=== PATIENT | male | born 1970 | race Caucasian/White ===

== ENCOUNTER 2023-03-29 20:45 | Outpatient (CLI) | payer BC, SELFPAY | END 2023-03-29 20:46 | disposition home or self-care (01) | LOC: AMB 03-30 10:02 | PROVIDERS: PCP Family Medicine; Visit Provider Emergency Medicine Emergency Medical Services | DX: R55 Syncope and collapse (principal) | CPT/HCPCS: A0425; A0427 ==

== ENCOUNTER 2023-03-29 21:06 | Emergency (ER) | payer BC, SELFPAY ==
[2023-03-29] VITALS (8 sets, daily range): BP systolic 90–118; BP diastolic 58–79; PULSE 73–91; RESP 18; TEMP 36.8; O2SAT 96–99; BMI 22.8
--- NOTE | 2023-03-29 21:41 | ED_ITS ---
HPI - Syncope General Time Seen by Provider: 21:41 <Svetlana Osborne MD - Last Filed: 03/30/23 09:14> Date Seen: 03/29/23 <Svetlana Osborne MD - Last Filed: 03/30/23 09:14> Chief Complaint: Syncope/Fainted <Svetlana Osborne MD - Last Filed: 03/30/23 09:14> Stated Complaint: fainted <Svetlana Osborne MD - Last Filed: 03/30/23 09:14> Time Seen by Provider: 03/29/23 21:41 <Svetlana Osborne MD - Last Filed: 03/30/23 09:14> Source: patient, family, EMS and RN notes reviewed <Svetlana Osborne MD - Last Filed: 03/30/23 09:14> Mode of arrival: EMS <Svetlana Osborne MD - Last Filed: 03/30/23 09:14> Limitations: no limitations <Svetlana Osborne MD - Last Filed: 03/30/23 09:14> History of Present Illness HPI narrative: Patient is a 52yo male brought in by EMS from home after syncopal event. Patient has Waldenstrom macroglobulinemia, started treatment with chemotherapy bendamustine this week, received this Monday and Monday. Completed his Neulasta self injector tonight. He started to nausea and faint after the injection completed. He went to go back upstairs and fainted. His was there and found him on the floor looking pale but breathing, he was wedged in between the wall and dresser. He likely hit the back of his head, has some mild neck discomfort but he wouldn't call it pain. She had him count to 10, was able to talk. She had him scoot out to larger area, called 911. He notes that he was very sweaty when he first came to. When EMS was there, they did sit him up and he got very dizzy again, felt hot again. Once in the back of the ambulance, was shivering despite not feeling cold at all. This has now abated. He has slight headache but has had headaches for last couple of months. He states that his appetite has been good, drinking and eating just fine. EMS glc 99. Patient receives care through [facility] in [place]. <Svetlana Osborne MD - Last Filed: 03/30/23 09:14> Related Data Home Medications: Home Medications Medication Instructions Recorded Confirmed aspirin 81 mg tablet,delayed 81 mg PO DAILY 03/29/23 03/29/23 release (Adult Aspirin Regimen) <Svetlana Osborne MD - Last Filed: 03/30/23 09:14> Allergies/Adverse Reactions: Allergies Allergy/AdvReac Type Severity Reaction Status Date / Time No Known Drug Allergies Allergy Verified 03/29/23 21:16 <Svetlana Osborne MD - Last Filed: 03/30/23 09:14> Review of Systems Status of ROS: Reports: 6 or more systems reviewed and unremarkable except as noted in History and below <Svetlana Osborne MD - Last Filed: 03/30/23 09:14> PFSH PFS Social History: Social History Smoking Status: Never smoker Do you use any of these nicotine containing products: None Second hand tobacco smoke exposure: No How often do you have a drink containing alcohol: never How often do you have six or more drinks on one occasion: Never AUDIT-C Alcohol total score: 0 Non-prescribed substance use: denies use service: No <Svetlana Osborne MD - Last Filed: 03/30/23 09:14> Exam Const: Vital Signs, click to edit/add: Vital Signs - 24 hr 03/29/23 21:17 03/29/23 21:51 03/29/23 22:51 Temperature 98.3 F Pulse Rate 91 Pulse Rate [Pulse Oximeter] 80 Respiratory Rate 18 Blood Pressure Blood Pressure [Ri ght Upper Arm] 118/79 Pulse Oximetry 99 99 98 Oxygen Delivery Me thod Room Air 03/29/23 23:00 03/29/23 23:02 03/29/23 23:03 Temperature Pulse Rate 79 78 78 Pulse Rate [Pulse Oximeter] Respiratory Rate Blood Pressure 102/62 Blood Pressure [Ri ght Upper Arm] Pulse Oximetry 97 97 97 Oxygen Delivery Me thod 03/29/23 23:30 03/29/23 23:32 03/30/23 00:00 Temperature Pulse Rate 73 75 82 Pulse Rate [Pulse Oximeter] Respiratory Rate Blood Pressure 90/58 L Blood Pressure [Ri ght Upper Arm] Pulse Oximetry 96 96 98 Oxygen Delivery Me thod Shola is a 52-year-old male lying in the bed in exam room 7, cheeks are flushed but no rash, sclera clear, extraocular muscles intact, pupils equal round reactive. Symmetrical facial function, able to speak in complete sentences. No midline tenderness of his neck, no paraspinous tenderness but he does state he does feel little stiff, did have him stop range of motion in we will obtain CT of his neck, seems to be splinting himself fine. Was able to sit up, did not have neck pain with the process of sitting up, listen to his lungs while he was up and they are clear, good air entry, no wheezing or crackles. Has a superficial abrasion in an arc overlying his left scapula, no active bleeding. Did point this out to patient and his , likely received this superficial abrasion with the fall. Neurovascular is intact in his extremities. CV regular rate and rhythm, no murmur, normal S1-S2, no S3-S4. Abdomen is soft, no rebound or guarding, no organomegaly. He has no lower extremity edema, no calf tenderness. <Svetlana Osborne MD - Last Filed: 03/30/23 09:14> Vital Signs, click to edit/add: Vital Signs - 24 hr 03/29/23 21:17 03/29/23 21:51 03/29/23 22:51 Temperature 98.3 F Pulse Rate 91 Pulse Rate [Pulse Oximeter] 80 Respiratory Rate 18 Blood Pressure Blood Pressure [Ri ght Upper Arm] 118/79 Pulse Oximetry 99 99 98 Oxygen Delivery Me thod Room Air 03/29/23 23:00 03/29/23 23:02 03/29/23 23:03 Temperature Pulse Rate 79 78 78 Pulse Rate [Pulse Oximeter] Respiratory Rate Blood Pressure 102/62 Blood Pressure [Ri ght Upper Arm] Pulse Oximetry 97 97 97 Oxygen Delivery Me thod 03/29/23 23:30 03/29/23 23:32 03/30/23 00:00 Temperature Pulse Rate 73 75 82 Pulse Rate [Pulse Oximeter] Respiratory Rate Blood Pressure 90/58 L Blood Pressure [Ri ght Upper Arm] Pulse Oximetry 96 96 98 Oxygen Delivery Me thod <Jai Interiano MD - Last Filed: 03/29/23 23:54> Documenting provider has reviewed patient's vital signs: yes <Svetlana Osborne MD - Last Filed: 03/30/23 09:14> Course Course ED Course: Patient will have head neck cervical imaging to rule out traumatic changes. Will be doing chest CT PE protocol as thromboembolic disease as a possible etiology of his syncope. Will get full complement of labs, obtain EKG, troponin and D-dimer as well. Will initiate a L of normal saline. I am not aware Neulasta causing syncope is a significant side effect nor his chemotherapy agent, did briefly look them. If patient does have pulmonary emboli, may need to be further evaluated for hyperviscosity syndrome. We cannot do a viscosity lab level here, this is a send out. At this time, he does not seem to have other symptoms that are in literature for hyperviscosity syndrome. <Svetlana Osborne MD - Last Filed: 03/30/23 09:14> Vital Signs Vital signs: Initial Vital Signs Temperature 98.3 F 03/29/23 21:17 Temperature Source Temporal Artery Scan 03/29/23 21:17 Pulse Rate 80 03/29/23 21:17 Pulse Rhythm Regular 03/29/23 21:17 Pulse Strength 3+ Normal 03/29/23 21:17 Respiratory Rate 18 03/29/23 21:17 Blood Pressure 118/79 03/29/23 21:17 Blood Pressure Mean 92 03/29/23 21:17 Blood Pressure Position Semi-Fowlers 03/29/23 21:17 Pulse Oximetry 99 03/29/23 21:17 Oxygen Delivery Method Room Air 03/29/23 21:17 Vital Signs Temperature 98.3 F 03/29/23 21:17 Pulse Rate 80 03/29/23 21:17 Respiratory Rate 18 03/29/23 21:17 Blood Pressure 118/79 03/29/23 21:17 Pulse Oximetry 99 03/29/23 21:17 Oxygen Delivery Method Room Air 03/29/23 21:17 Temperature 98.3 F 03/29/23 21:17 Pulse Rate 82 03/30/23 00:00 Respiratory Rate 18 03/29/23 21:17 Blood Pressure 90/58 L 03/29/23 23:32 Pulse Oximetry 98 03/30/23 00:00 Oxygen Delivery Method Room Air 03/29/23 21:17 <Svetlana Osborne MD - Last Filed: 03/30/23 09:14> Initial Vital Signs Temperature 98.3 F 03/29/23 21:17 Temperature Source Temporal Artery Scan 03/29/23 21:17 Pulse Rate 80 03/29/23 21:17 Pulse Rhythm Regular 03/29/23 21:17 Pulse Strength 3+ Normal 03/29/23 21:17 Respiratory Rate 18 03/29/23 21:17 Blood Pressure 118/79 03/29/23 21:17 Blood Pressure Mean 92 03/29/23 21:17 Blood Pressure Position Semi-Fowlers 03/29/23 21:17 Pulse Oximetry 99 03/29/23 21:17 Oxygen Delivery Method Room Air 03/29/23 21:17 Vital Signs Temperature 98.3 F 03/29/23 21:17 Pulse Rate 80 03/29/23 21:17 Respiratory Rate 18 03/29/23 21:17 Blood Pressure 118/79 03/29/23 21:17 Pulse Oximetry 99 03/29/23 21:17 Oxygen Delivery Method Room Air 03/29/23 21:17 Temperature 98.3 F 03/29/23 21:17 Pulse Rate 82 03/30/23 00:00 Respiratory Rate 18 03/29/23 21:17 Blood Pressure 90/58 L 03/29/23 23:32 Pulse Oximetry 98 03/30/23 00:00 Oxygen Delivery Method Room Air 03/29/23 21:17 <Jai Interiano MD - Last Filed: 03/29/23 23:54> Medications Administered Medications: Discontinued Medications Generic Name Dose Route Start Last Admin Trade Name Freq PRN Reason Stop Dose Admin Sodium Chloride 1,000 mls @ 500 mls/hr 03/29/23 22:06 03/29/23 22:10 0.9 % Sodium Chloride 1000 Ml IV 03/30/23 00:05 500 mls/hr .Q2H LACIE Administration <Svetlana Osborne MD - Last Filed: 03/30/23 09:14> Discontinued Medications Generic Name Dose Route Start Last Admin Trade Name Daniel PRN Reason Stop Dose Admin Sodium Chloride 1,000 mls @ 500 mls/hr 03/29/23 22:06 03/29/23 22:10 0.9 % Sodium Chloride 1000 Ml IV 03/30/23 00:05 500 mls/hr .Q2H LACIE Administration <Jai Interiano MD - Last Filed: 03/29/23 23:54> MDM - Syncope MDM Narrative Medical decision making narrative: This patient had a syncopal event as described above. Initial workup was done by Dr. Schultz who finished her shift and I am looking after results of the tests. The patient did receive a L of normal saline intravenously. CT imaging of the head, C-spine, and chest returned with no acute findings. Additionally lab results are reassuring. His vital signs are okay however his blood pressure is somewhat soft. The patient feels okay to return home. He did recently start chemotherapy for Waldenstroms Macroglobulinemia. This may be contributing to some of his symptoms today. <Jai Interiano MD - Last Filed: 03/29/23 23:54> Differential Diagnosis Differential diagnosis: Likely syncope due to orthostatic hypotension, vasovagal syncope and pulmonary embolism <Svetlana Osborne MD - Last Filed: 03/30/23 09:14> Lab Data Labs: Lab Results 03/29/23 03/29/23 03/29/23 Range/Units 21:35 21:54 22:07 WBC 7.12 (4.50-11.00) K/uL RBC 4.40 (4.30-5.90) m/uL Hgb 12.9 L (13.5-17.5) gm/dL Hct 40.3 (37.0-53.0) % MCV 92 (80-100) fL MCH 29 (26-34) pg MCHC 32 (32-36) gm/dL RDW Coeff of Galo 14.3 (11.5-15.5) % Plt Count 205 (140-440) K/uL Neut % (Auto) 82.5 H (42.0-72.0) % Lymph % (Auto) 15.0 L (20-44) % Wilcox % (Auto) 1.4 (0.0-11.0) % Eos % (Auto) 0.3 (0.0-7.0) % Baso % (Auto) 0.1 (0.0-3.0) % Neut # (Auto) 5.90 (1.7-7.0) K/uL Lymph # (Auto) 1.10 (0.90-2.90) K/uL Wilcox # (Auto) 0.10 (0.00-0.90) K/UL Eos # (Auto) 0.02 (0.00-0.50) K/uL Baso # (Auto) 0.01 (0.00-0.30) K/uL Abs Immat Gran (auto) 0.05 (0.00-0.30) K/uL Imm/Tot Granulo (auto) 0.7 % INR 1.10 (0.91-1.10) APTT 27 (23-33) Seconds D-Dimer Quant (PE/DVT) 0.51 H (0.00-0.50) ug/ml VBG pH 7.37 (7.32-7.43) VBG pCO2 42 (40-50) mmHG VBG pO2 91.0 H (25-47) mmHG VBG HCO3 24 (21-28) mmol/L Sodium 139 (135-149) mmol/L Potassium 3.5 L (3.6-5.1) mmol/L Chloride 104 (96-114) mmol/L Carbon Dioxide 26 (20-32) mmol/L Anion Gap 9 (7-15) mEq/L BUN 26 (7-30) mg/dL Creatinine 1.1 (0.5-1.5) mg/dL Estimated Creat Clear 73.88 Estimated GFR 80 ml/min Glucose 83 (60-115) mg/dL Lactate 2.1 H (0.5-1.9) mmol/L Calcium 8.8 (8.4-10.6) mg/dL Total Bilirubin 0.5 (0.1-1.5) mg/dL AST 23 (12-35) U/L ALT 19 (4-50) U/L Alkaline Phosphatase 79 (40-150) U/L NT-Pro-B Natriuret Pep 71 pg/mL Total Protein 9.4 H (6.0-8.3) g/dL Albumin 4.1 (3.3-5.0) g/dL SARS-CoV-2 (PCR) Negative SARS-CoV-2 (Negative) Influenza Type A (PCR) Negative PCR FLU A (Negative) Influenza Type B (PCR) Negative PCR FLU B (Negative) RSV (PCR) Negative PCR RSV (Negative) POC Troponin I 0.00 L (0.01-0.04) ng/ml <Svetlana Osborne MD - Last Filed: 03/30/23 09:14> Lab Results 03/29/23 03/29/23 03/29/23 Range/Units 21:35 21:54 22:07 WBC 7.12 (4.50-11.00) K/uL RBC 4.40 (4.30-5.90) m/uL Hgb 12.9 L (13.5-17.5) gm/dL Hct 40.3 (37.0-53.0) % MCV 92 (80-100) fL MCH 29 (26-34) pg MCHC 32 (32-36) gm/dL RDW Coeff of Galo 14.3 (11.5-15.5) % Plt Count 205 (140-440) K/uL Neut % (Auto) 82.5 H (42.0-72.0) % Lymph % (Auto) 15.0 L (20-44) % Wilcox % (Auto) 1.4 (0.0-11.0) % Eos % (Auto) 0.3 (0.0-7.0) % Baso % (Auto) 0.1 (0.0-3.0) % Neut # (Auto) 5.90 (1.7-7.0) K/uL Lymph # (Auto) 1.10 (0.90-2.90) K/uL Wilcox # (Auto) 0.10 (0.00-0.90) K/UL Eos # (Auto) 0.02 (0.00-0.50) K/uL Baso # (Auto) 0.01 (0.00-0.30) K/uL Abs Immat Gran (auto) 0.05 (0.00-0.30) K/uL Imm/Tot Granulo (auto) 0.7 % INR 1.10 (0.91-1.10) APTT 27 (23-33) Seconds D-Dimer Quant (PE/DVT) 0.51 H (0.00-0.50) ug/ml VBG pH 7.37 (7.32-7.43) VBG pCO2 42 (40-50) mmHG VBG pO2 91.0 H (25-47) mmHG VBG HCO3 24 (21-28) mmol/L Sodium 139 (135-149) mmol/L Potassium 3.5 L (3.6-5.1) mmol/L Chloride 104 (96-114) mmol/L Carbon Dioxide 26 (20-32) mmol/L Anion Gap 9 (7-15) mEq/L BUN 26 (7-30) mg/dL Creatinine 1.1 (0.5-1.5) mg/dL Estimated Creat Clear 73.88 Estimated GFR 80 ml/min Glucose 83 (60-115) mg/dL Lactate 2.1 H (0.5-1.9) mmol/L Calcium 8.8 (8.4-10.6) mg/dL Total Bilirubin 0.5 (0.1-1.5) mg/dL AST 23 (12-35) U/L ALT 19 (4-50) U/L Alkaline Phosphatase 79 (40-150) U/L NT-Pro-B Natriuret Pep 71 pg/mL Total Protein 9.4 H (6.0-8.3) g/dL Albumin 4.1 (3.3-5.0) g/dL SARS-CoV-2 (PCR) Negative SARS-CoV-2 (Negative) Influenza Type A (PCR) Negative PCR FLU A (Negative) Influenza Type B (PCR) Negative PCR FLU B (Negative) RSV (PCR) Negative PCR RSV (Negative) POC Troponin I 0.00 L (0.01-0.04) ng/ml <Jai Interiano MD - Last Filed: 03/29/23 23:54> Imaging Data CT scan - chest: Radiologist's impression: No evidence of pulmonary embolism or acute intrathoracic abnormality. <Jai Interiano MD - Last Filed: 03/29/23 23:54> CT scan - head: Radiologist's impression: No acute intracranial abnormality. <Jai Interiano MD - Last Filed: 03/29/23 23:54> CT cervical spine: Radiologist's impression: No acute fracture or traumatic subluxation of the cervical spine. <Jai Interiano MD - Last Filed: 03/29/23 23:54> Discharge Plan Discharge Clinical Impression: Vasovagal syncope, Waldenstrom macroglobulinemia <Svetlana Osborne MD - Last Filed: 03/30/23 09:14> Patient Disposition: Home w/ Parent or Adult <Svetlana Osborne MD - Last Filed: 03/30/23 09:14> Condition: Stable <Svetlana Osborne MD - Last Filed: 03/30/23 09:14> Additional Instructions: Activity as tolerated. Continue current plans and follow up with MD as scheduled. Return if symptoms are recurrent or worsening. <Svetlana Osborne MD - Last Filed: 03/30/23 09:14> Prescriptions: No Action aspirin [Adult Aspirin Regimen] 81 mg tablet,delayed release (DR/EC) 81 mg PO DAILY <Svetlana Osborne MD - Last Filed: 03/30/23 09:14> Follow Up/Referrals: Gertrude Peter, ASSISTANT REFINERY OPERATOR [Nurse Practitioner] - <Svetlana Osborne MD - Last Filed: 03/30/23 09:14> Stand Alone Forms: MyHealth Info Instructions <Svetlana Osborne MD - Last Filed: 03/30/23 09:14>
--- NOTE | 2023-03-29 21:51 | CRLHL7_ITS ---
For Patients: As a result of the Cures Act, medical imaging exams and procedure reports are released immediately into your electronic medical record. You may view this report before your referring provider. If you have questions, please contact your health care provider. INDICATION: Syncope, fall. TECHNIQUE: CT cervical spine without contrast. COMPARISON: None. FINDINGS: Vertebrae: Straightening of the normal cervical lordosis, which may be due to muscle spasm or positioning. There are no fractures or suspicious bony lesions. Discs and facet joints: C5-C6 disc degeneration with disc space narrowing and endplate sclerosis. Facet joints are within normal limits. Extraspinal findings: Prevertebral soft tissues, visualized airway, and visualized lungs are unremarkable. IMPRESSION: No acute fracture or traumatic subluxation of the cervical spine. Please note that all CT scans at this facility use dose modulation, iterative reconstruction, and/or weight-based dosing when appropriate to reduce radiation dose to as low as reasonably achievable. Dictated by Charly Marie MD @ 03/29/2023 11:36:46 PM (Electronically Signed)
--- NOTE | 2023-03-29 21:52 | CRLHL7_ITS ---
For Patients: As a result of the Century Cures Act, medical imaging exams and procedure reports are released immediately into your electronic medical record. You may view this report before your referring provider. If you have questions, please contact your health care provider. INDICATION: Syncope. TECHNIQUE: CT chest PE was acquired with 95 cc Isovue 370 IV contrast. COMPARISON: None. FINDINGS: Heart and vasculature: Contrast opacification of the pulmonary arterial tree is adequate. No sign of pulmonary embolism. Heart size is normal. Thoracic aorta and pulmonary artery are normal in caliber. Lungs and pleura: Lungs and pleural spaces are clear. No suspicious nodules or infiltrates. No pleural effusions, pleural thickening, or pneumothorax. Lymph nodes/mediastinum: No mediastinal, hilar, or axillary adenopathy. Thyroid gland is unremarkable. Chest wall: No masses. Upper abdomen: No acute or significant findings. Bones: Unremarkable for age. IMPRESSION: No evidence of pulmonary embolism or acute intrathoracic abnormality. Please note that all CT scans at this facility use dose modulation, iterative reconstruction, and/or weight-based dosing when appropriate to reduce radiation dose to as low as reasonably achievable. Dictated by Charly Marie MD @ 03/29/2023 11:41:03 PM (Electronically Signed)
--- NOTE | 2023-03-29 21:54 | CRLHL7_ITS ---
For Patients: As a result of the Century Cures Act, medical imaging exams and procedure reports are released immediately into your electronic medical record. You may view this report before your referring provider. If you have questions, please contact your health care provider. INDICATION: Syncope. TECHNIQUE: CT head without contrast. COMPARISON: None. FINDINGS: CSF spaces: Within normal limits for age. Brain parenchyma: The rivera-white differentiation is maintained. No sign of mass, hemorrhage, or midline shift. Skull base and calvarium: Postsurgical changes of right canal wall up mastoidectomy and right retro sigmoid occipital craniectomy. Paranasal sinuses and left mastoid air cells are clear. The visualized orbits are grossly unremarkable. No skull fractures. IMPRESSION: No acute intracranial abnormality. Please note that all CT scans at this facility use dose modulation, iterative reconstruction, and/or weight-based dosing when appropriate to reduce radiation dose to as low as reasonably achievable. Dictated by Charly Marie MD @ 03/29/2023 11:33:53 PM (Electronically Signed)
[2023-03-29 22:02] LABS: Basophils Absolute Auto 0.01 K/uL (0.00-0.30); Basophils Percent Auto 0.1 % (0.0-3.0); Eosinophils Absolute Auto 0.02 K/uL (0.00-0.50); Eosinophils Percent Auto 0.3 % (0.0-7.0); Hematocrit 40.3 % (37.0-53.0); Hemoglobin* 12.9 gm/dL (13.5-17.5); Immature Granulocytes Abs Auto 0.05 K/uL (0.00-0.30); Immature Granulocytes Pct Auto 0.7 %; Mean Corpuscular HGB Conc 32 gm/dL (32-36); Mean Corpuscular Hemoglobin 29 pg (26-34); Mean Corpuscular Volume 92 fL (80-100); Monocytes Percent Auto 1.4 % (0.0-11.0); Neutrophils Percent Auto 82.5 % (42.0-72.0); Platelet Count* 205 K/uL (140-440); RDW Coefficient of Variation % 14.3 % (11.5-15.5); White Blood Count* 7.12 K/uL (4.50-11.00)
[2023-03-29] MEDS: 0.9 % SODIUM CHLORIDE 1000 ml 1,000 ML 500 ML IV (22:10)
[2023-03-29 22:13] LABS: Slide Review Reflex No
[2023-03-29 22:29] LABS: Albumin* 4.1 g/dL (3.3-5.0); Lactate* 2.1 mmol/L (0.5-1.9)
[2023-03-29 22:30] LABS: Chloride* 104 mmol/L (96-114); Potassium* 3.5 mmol/L (3.6-5.1); Sodium* 139 mmol/L (135-149)
[2023-03-29 22:32] LABS: Anion Gap 9 mEq/L (7-15); Aspartate Amino Transferase* 23 U/L (12-35); Bilirubin Total* 0.5 mg/dL (0.1-1.5); Blood Urea Nitrogen* 26 mg/dL (7-30); Carbon Dioxide* 26 mmol/L (20-32); Creatinine* 1.1 mg/dL (0.5-1.5); Est. Creatinine Clearance* 73.88; Estimated Glomerular Filt Rate 80 ml/min; Total Protein* 9.4 g/dL (6.0-8.3)
[2023-03-29 22:33] LABS: Alanine Aminotransferase* 19 U/L (4-50); Alkaline Phosphatase* 79 U/L (40-150); Calcium* 8.8 mg/dL (8.4-10.6); Glucose* 83 mg/dL (60-115)
[2023-03-29 22:34] LABS: D Dimer Quantitative* 0.51 ug/ml (0.00-0.50)
[2023-03-29 22:37] LABS: HCO3 VBG 24 mmol/L (21-28); PCO2 VBG 42 mmHG (40-50); pH VBG 7.37 (7.32-7.43)
[2023-03-29 22:53] LABS: PCR FLU A Negative PCR FLU A (Negative); PCR FLU B Negative PCR FLU B (Negative); PCR RSV Negative PCR RSV (Negative)
[2023-03-29 23:05] LABS: SARS PCR* Negative SARS-CoV-2 (Negative)
[2023-03-29 23:35] LABS: Prothrombin Time 14.9 Seconds
[2023-03-29 23:36] LABS: Partial Thromboplastin Time* 27 Seconds (23-33)
[2023-03-29 23:41] LABS: NT Pro B Type NatriureticPept* 71 pg/mL
[2023-03-30] VITALS: PULSE 82; O2SAT 98
== END 2023-03-30 00:10 | disposition home or self-care (01) ==
PROVIDERS: Emergency Provider Family Medicine; PCP Family Medicine
DX: R55 Syncope and collapse (principal); C88.0 Waldenstrom macroglobulinemia
CPT/HCPCS: 36415; 70450; 71275; 72125; 80053; 82803; 83605; 83880; 84484; 85025; 85379; 85610; 85730; 87631; 93005; 94761; 99284; 99285; J7030; Q9967